=== PATIENT | male | born 2000 | race African-American/Black ===

== ENCOUNTER 2021-06-24 17:59 | Emergency (ER) | payer MEDICAID ==
[~2021-06-24] VITALS: Ht 180.3 cm; Wt 74.0 kg
[2021-06-24] MEDS ORDERED: IPRATROPIUM BROMIDE (0.02%) 0.5MG/2.5ML NEB HHN STA (19:25)
[2021-06-24] MEDS ORDERED: ALBUTEROL (0.083%) 2.5MG/3ML NEB HHN SCH (19:30)
[2021-06-24] MEDS: DEXAMETHASONE 4MG TABLET PO ONE ×2 (19:38→19:47)
[2021-06-24 19:55] VITALS: BP 134/89
[2021-06-24] MEDS ORDERED: ALBU6.7H9 INH ×3 (19:56→19:57)
[2021-06-24] MEDS ORDERED: ATROV INH (19:57)
== END 2021-06-24 20:27 | disposition home or self-care (01) ==
LOC: ER 17:59
DX: J45.901 Unspecified asthma with (acute) exacerbation (principal)
CPT/HCPCS: 93005; 94640; 99285; Z7610; J8540